=== PATIENT | female | born 1945 | race Caucasian/White ===

== ENCOUNTER → 2018-09-19 | Outpatient (CLI) | payer MEDICARE, OTHER ==
--- NOTE | 2018-09-19 09:14 | WOMENS IMAGING REPORT ---
EXAM DESCRIPTION: BILAT SCREENING MAMMO W/CAD COMPLETED DATE/TIME: 09/19/2018 8:54 am REASON FOR STUDY: BILATERAL SCREENING MAMMO /Z12.31 Z12.31 ENCNTR SCREEN MAMMOGRAM FOR MALIGNANT NE OPLASM OF CALLIE COMPARISON: Multiple since 2008 TECHNIQUE: Standard craniocaudal and mediolateral oblique views of each breast recorded using [employer] acquisition. LIMITATIONS: None. FINDINGS: No masses, calcifications or architectural distortion. No areas of suspicion. Read with the assistance of CAD. .[facility] - R2 Cenova Version 1.3 .[facility] - R2 Cenova Version 1.3 .[facility] - R2 Cenova Version 2.4 .[facility] - R2 Cenova Version 2.4 .[facility] - R2 Stock Shaper Version 9.2 IMPRESSION: NORMAL MAMMOGRAM. BIRADS 1. BREAST DENSITY: b. There are scattered areas of fibroglandular density. BIRAD: 1 NEGATIVE RECOMMENDATION: ROUTINE SCREENING Please continue yearly bilateral screening mammography/tomosynthesis in August 2019 COMMENT: The patient has been notified of the results by letter per [place] requirements. Additional no tification policies are in place for contacting patient with suspicious or incomplete findings. Quality ID #[id number]: The [employer] recommends an annual screening mammogram for women aged 40 years or over. This facility utilizes a reminder system to ensure that all patients receive reminder letters, and/or direct phone calls for appointments. This includes reminders for routine scr eening mammograms, diagnostic mammograms, or other Breast Imaging Interventions when appropriate. Th is patient will be placed in the appropriate reminder system. The [employer] (ACR) has developed recommendations for screening MRI of the breast s in certain patient populations, to be used in conjunction with mammography. Breast MRI surveillanc e may be appropriate for women with more than 20% lifetime risk of developing breast cancer as deter mined by genetic testing, significant family history of the disease, or history of mantle radiation f or Hodgkins Disease. ACR Practice Guidelines 2008. TECHNICAL DOCUMENTATION: FINDING NUMBER: (1) ASSESSMENT: (1) JOB ID: [id number] [employer]- All Rights Reserved Reading location - IP/workstation name: [email or web address]
== END ==
LOC: WI 08:25
PROVIDERS: ATTEND Family Medicine
DX: Z12.31 Encounter for screening mammogram for malignant neoplasm of breast (principal)
CPT/HCPCS: 77067

== ENCOUNTER 2019-08-26 01:52 | Emergency (ER) | payer MEDICARE, OTHER ==
[2019-08-26] MEDS ORDERED: HYDROCODONE/ACETAMINOPHEN 5-325 MG TABLET PO ONE (03:37)
--- NOTE | 2019-08-26 03:39 | ER Document Report ---
ED General <ADDIE CAIN - Last Filed: 08/26/19 09:40> - General Information source: Patient TRAVEL OUTSIDE OF THE [place] IN LAST 30 DAYS: No - HPI Onset: Other - 2 days Onset/Duration: Persistent Quality of pain: Achy Pain Level: 2 Associated symptoms: Body/muscle aches. denies: Chest pain, Nonproductive cough, Productive cough, Fever, Headache, Leg swelling, Nausea, Vomiting, Shortness of breath Exacerbated by: Denies Relieved by: Denies Similar symptoms previously: No Recently seen / treated by doctor: No <SUSAN CARLOS - Last Filed: 08/27/19 01:13> - General Chief Complaint: Pain All Over Stated Complaint: BODY ACHES Time Seen by Provider: 08/26/19 03:31 Primary Care Provider: FACUNDO MCKEON MD [Primary Care Provider] - Follow up as needed Notes: Patient presents complaining of generalized body aches for the past 2 days. Patient denies any fever or recent illness. Patient denies any cough cold symptoms nausea or vomiting. Patient denies any fever. Patient denies any dysuria symptoms. (SUSAN CARLOS) - Related Data Allergies/Adverse Reactions: No Known Allergies Allergy (Unverified 08/26/19 02:27) Past Medical History - General Information source: Patient - Social History Smoking Status: Never Smoker Frequency of alcohol use: None Drug Abuse: None Lives with: Alone Family History: Reviewed & Not Pertinent Patient has suicidal ideation: No Patient has homicidal ideation: No - Past Medical History Cardiac Medical History: Reports: Hx Hypercholesterolemia, Hx Hypertension Psychiatric Medical History: Reports: Hx Depression Past Surgical History: Reports: Hx Orthopedic Surgery - knee, back, nose <SUSAN CARLOS - Last Filed: 08/27/19 01:13> Review of Systems - Review of Systems Constitutional: No symptoms reported. denies: Chills, Fever, Malaise, Recent illness EENT: No symptoms reported Cardiovascular: No symptoms reported. denies: Chest pain, Dizziness, Lightheade d Respiratory: No symptoms reported. denies: Cough, Short of breath Gastrointestinal: No symptoms reported. denies: Abdominal pain, Diarrhea, Nausea, Vomiting Genitourinary: No symptoms reported Female Genitourinary: No symptoms reported Musculoskeletal: Muscle pain Skin: No symptoms reported Hematologic/Lymphatic: No symptoms reported Neurological/Psychological: No symptoms reported <SUSAN CARLOS - Last Filed: 08/27/19 01:13> Physical Exam - General General appearance: Appears well, Alert In distress: None - HEENT Head: Normocephalic, Atraumatic Eyes: Normal Conjunctiva: Normal Nasal: Normal Mouth/Lips: Normal Mucous membranes: Normal Neck: Normal, Supple - Respiratory Respiratory status: No respiratory distress Chest status: Nontender Breath sounds: Normal. No: Rales, Rhonchi, Stridor, Wheezing Chest palpation: Normal - Cardiovascular Rhythm: Regular Heart sounds: S1 appreciated, S2 appreciated - Abdominal Inspection: Normal Distension: No distension Bowel sounds: Normal Tenderness: Nontender Organomegaly: No organomegaly - Back Back: Normal, Nontender - Extremities General upper extremity: Normal inspection, Tender - Generalized tenderness to bilateral upper extremities, Normal color, Normal ROM, Normal strength General lower extremity: Normal inspection, Tender - Generalized tenderness to bilateral lower extremity, Normal color, Normal ROM, Normal strength - Neurological Neuro grossly intact: Yes Cognition: Normal Orientation: AAOx4 Mere Coma Scale Eye Opening: Spontaneous Mere Coma Scale Verbal: Oriented Mere Coma Scale Motor: Obeys Commands Mere Coma Scale Total: 15 - Psychological Associated symptoms: Normal affect, Normal mood - Skin Skin Temperature: Warm Skin Moisture: Dry Skin Color: Normal <SUSAN CARLOS - Last Filed: 08/27/19 01:13> - Vital signs Vitals: Temp Pulse Resp BP Pulse Ox 98.0 F 79 20 136/68 H 96 08/26/19 02:11 08/26/19 02:11 08/26/19 02:11 08/26/19 02:11 08/26/19 02:11 Course - Laboratory Result Diagrams: 08/26/19 04:20 08/26/19 04:20 <ADDIE CAIN - Last Filed: 08/26/19 09:40> - Laboratory Result Diagrams: 08/26/19 04:20 08/26/19 04:20 - Diagnostic Test Radiology reviewed: Reports reviewed <SUSAN CARLOS - Last Filed: 08/27/19 01:13> - Re-evaluation Re-evalutation: 08/26/19 09:40 Laboratory 08/26/19 08/26/19 08/26/19 04:20 04:20 04:20 WBC 12.7 H RBC 3.60 L Hgb 10.7 L Hct 31.1 L MCV 87 MCH 29.6 MCHC 34.2 RDW 14.4 H Plt Count 272 Lymph % (Auto) 8.[address] [place] % (Auto) 3.2 Eos % (Auto) 1.0 Baso % (Auto) 0.4 Absolute Neuts (auto) 11.1 H Absolute Lymphs (auto) 1.0 Absolute Monos (auto) 0.4 Absolute Eos (auto) 0.1 Absolute Basos (auto) 0.1 Seg Neutrophils % 87.4 H Sodium 139.1 Potassium 4.5 Chloride 110 H Carbon Dioxide 17 L Anion Gap 12 BUN 27 H Creatinine 1.13 Est GFR ( Amer) 57 L Est GFR (MDRD) Non-Af 47 L Glucose 106 Calcium 10.4 H Total Bilirubin 0.4 Direct Bilirubin 0.2 Neonat Total Bilirubin Not Reportable Neonat Direct Bilirubin Not Reportable Neonat Indirect Bili Not Reportable AST 15 ALT 12 Alkaline Phosphatase 108 Creatine Kinase 51 Troponin I Total Protein 6.3 Albumin 3.6 Urine Color Urine Appearance Urine pH Ur Specific Blackwell Urine Protein Urine Glucose (UA) Urine Ketones Urine Blood Urine Nitrite (Reflex) Urine Bilirubin Urine Urobilinogen Leukocyte Esterase Rfl Squamous Epi Cells Auto Urine Ascorbic Acid Influenza A (Rapid) NEGATIVE Influenza B (Rapid) NEGATIVE 08/26/19 08/26/19 04:20 07:10 WBC RBC Hgb Hct MCV MCH MCHC RDW Plt Count Lymph % (Auto) [place] % (Auto) Eos % (Auto) Baso % (Auto) Absolute Neuts (auto) Absolute Lymphs (auto) Absolute Monos (auto) Absolute Eos (auto) Absolute Basos (auto) Seg Neutrophils % Sodium Potassium Chloride Carbon Dioxide Anion Gap BUN Creatinine Est GFR ( Amer) Est GFR (MDRD) Non-Af Glucose Calcium Total Bilirubin Direct Bilirubin Neonat Total Bilirubin Neonat Direct Bilirubin Neonat Indirect Bili AST ALT Alkaline Phosphatase Creatine Kinase Troponin I < 0.012 Total Protein Albumin Urine Color YELLOW Urine Appearance CLEAR Urine pH 5.0 Ur Specific [place]well 1.014 Urine Protein NEGATIVE Urine Glucose (UA) NEGATIVE Urine Ketones NEGATIVE Urine Blood NEGATIVE Urine Nitrite (Reflex) NEGATIVE Urine Bilirubin NEGATIVE Urine Urobilinogen NEGATIVE Leukocyte Esterase Rfl NEGATIVE Squamous Epi Cells Auto FEW Urine Ascorbic Acid NEGATIVE Influenza A (Rapid) Influenza B (Rapid) Chest X-Ray 08/26/19 08:08 IMPRESSION: NO SIGNIFICANT RADIOGRAPHIC FINDING IN THE CHEST. Patient is specifically requesting a prescription for tramadol. I discussed with her negative work-up in the emergency department. Patient continues without chest pain, shortness of breath. She continues without generalized weakness or unilateral weakness. Bilateral lower extremities show no signs of swelling. Patient's daughter is concerned this may be a "pinched nerve." I discussed close follow-up with orthopedics and primary care provider. Patient hemodynamically stable, stable for discharge. (ADDIE CAIN) 08/26/19 08:17 Bedside report and handoff given to MICHAEL Contreras. Patient continues with diffuse muscle pain, daughter is concerned that patient is not able to ambulate due to her pain symptoms. Additional tests added on. (SUSAN CARLOS) - Vital Signs Vital signs: Temp Pulse Resp BP Pulse Ox 98.4 F 82 16 137/64 H 96 08/26/19 10:14 08/26/19 10:14 08/26/19 10:14 08/26/19 10:14 08/26/19 10:14 - Laboratory Laboratory results interpreted by me: 08/26/19 08/26/19 04:20 04:20 WBC 12.7 H RBC 3.60 L Hgb 10.7 L Hct 31.1 L RDW 14.4 H Lymph % (Auto) 8.0 L Absolute Neuts (auto) 11.1 H Seg Neutrophils % 87.4 H Chloride 110 H Carbon Dioxide 17 L BUN 27 H Est GFR ( Amer) 57 L Est GFR (MDRD) Non-Af 47 L Calcium 10.4 H Discharge <ADDIE CAIN - Last Filed: 08/26/19 09:40> <SUSAN CARLOS - Last Filed: 08/27/19 01:13> - Discharge Clinical Impression: Generalized body aches Condition: Stable Disposition: HOME, SELF-CARE Instructions: Viral Syndrome ([facility]) Additional Instructions: As we discussed you have been seen and treated in the emergency department for potential viral infection. Your labs revealed no signs of overt abnormalities. Please make sure you follow-up with your primary care provider in the next 12 to 24 hours. Please return to the emergency department for any concerns. Prescriptions: Tramadol HCl [Ultram 50 mg Tablet] 50 mg PO TID PRN #12 tab PRN Reason: Referrals: FACUNDO MCKEON MD [Primary Care Provider] - Follow up as needed
[2019-08-26 04:38] LABS: ABSOLUTE BASOPHILS # (AUTO) 0.1 10^3/uL (0.0-0.2); ABSOLUTE EOSINOPHILS # (AUTO) 0.1 10^3/uL (0.0-0.6); ABSOLUTE MONOCYTES (AUTO) 0.4 10^3/uL (0.1-1.4); ABSOLUTE NEUT (AUTO) 11.1 10^3/uL (1.7-8.2); BASOPHILS % (AUTO) 0.4 % (0-2); HEMATOCRIT 31.1 % (36.0-47.0); HEMOGLOBIN 10.7 g/dL (12.0-15.5); MEAN CORPUSCULAR HEMOGLOBIN 29.6 pg (27.0-33.4); MEAN CORPUSCULAR HGB CONC 34.2 g/dL (32.0-36.0); MEAN CORPUSCULAR VOLUME 87 fl (80-97); MONOCYTES % (AUTO) 3.2 % (3-13); PLATELET COUNT 272 10^3/uL (150-450); RED CELL DISTRIBUTION WIDTH 14.4 % (11.5-14.0); SEGMENTED NEUTROPHILS % (AUTO) 87.4 % (42-78); TOTAL CELLS COUNTED % (AUTO) 100 %; WHITE BLOOD COUNT 12.7 10^3/uL (4.0-10.5)
[2019-08-26 05:02] LABS: ALBUMIN 3.6 g/dL (3.5-5.0); ALKALINE PHOSPHATASE 108 U/L (38-126); ANION GAP 12 (5-19); ASPARTATE AMINO TRANSFERASE 15 U/L (14-36); BILIRUBIN,DIRECT 0.2 mg/dL (0.0-0.4); BILIRUBIN,TOTAL 0.4 mg/dL (0.2-1.3); BLOOD UREA NITROGEN 27 mg/dL (7-20); CALCIUM 10.4 mg/dL (8.4-10.2); CARBON DIOXIDE 17 mmol/L (22-30); CHLORIDE 110 mmol/L (98-107); CREATINE KINASE 51 U/L (30-135); GLUCOSE 106 mg/dL (75-110); POTASSIUM 4.5 mmol/L (3.6-5.0); TOTAL PROTEIN 6.3 g/dL (6.3-8.2)
[2019-08-26] MEDS ORDERED: RINGERS SOLUTION,LACTATED 1,000 ML IV ONE (05:04)
[2019-08-26 05:12] LABS: A TYPE INFLUENZA AG NEGATIVE (NEGATIVE); B INFLUENZA AG NEGATIVE (NEGATIVE)
[2019-08-26 07:35] LABS: APPEARANCE,URINE CLEAR; BILIRUBIN,URINE NEGATIVE (NEGATIVE); COLOR,URINE YELLOW; GLUCOSE, URINE NEGATIVE (NEGATIVE); KETONES,URINE NEGATIVE (NEGATIVE); PROTEIN,URINE NEGATIVE (NEGATIVE); URINE SPECIFIC GRAVITY 1.014; UROBILINOGEN,URINE NEGATIVE mg/dL (<2.0)
--- NOTE | 2019-08-26 09:01 | RADIOLOGY REPORT (SQ) ---
EXAM DESCRIPTION: CHEST 2 VIEWS COMPLETED DATE/TIME: 08/26/2019 8:53 am REASON FOR STUDY: cough COMPARISON: 2008 TECHNIQUE: Frontal and lateral radiographic views of the chest acquired. NUMBER OF VIEWS: Two view. LIMITATIONS: None. FINDINGS: LUNGS AND PLEURA: Clear allowing for minimal scar in the left lateral base. This is uncha nged. No developing or acute infiltrates. MEDIASTINUM AND HILAR STRUCTURES: No masses or contour abnormalities. HEART AND VASCULAR STRUCTURES: Heart normal size. No evidence for failure. BONES: No acute findings. HARDWARE: None in the chest. OTHER: No other significant finding. IMPRESSION: NO SIGNIFICANT RADIOGRAPHIC FINDING IN THE CHEST. TECHNICAL DOCUMENTATION: JOB ID: [id number] [employer] All Rights Reserved Reading location - IP/workstation name: [email or web address]
[2019-08-26] MEDS ORDERED: TRAMADOL HCL 50 MG TABLET PO ONE (10:08)
[2019-08-26 10:44] VITALS: BP 137/64
--- NOTE | 2019-08-26 16:37 | EKG REPORT ---
SEVERITY:- ABNORMAL ECG - SINUS RHYTHM CONSIDER LEFT VENTRICULAR HYPERTROPHY : Confirmed by: Jesse Valdez MD 26-Aug-2019 16:36:52
== END 2019-08-26 10:14 | disposition home or self-care (01) ==
LOC: ER 01:52
DX: M79.10 Myalgia, unspecified site (principal); E78.00 Pure hypercholesterolemia, unspecified; I10 Essential (primary) hypertension
CPT/HCPCS: 93005; 99284; 96360; 96361; 36415; 82550; 85025; 80053; 81001; 84484; 87804; 71046; 93010; J7120; A9270 ×2